=== PATIENT | male | born 1960 | race Two or more races ===

== ENCOUNTER 2018-10-22 02:32 | Inpatient (IN) | payer BC ==
[2018-10-22] MEDS ORDERED: ONDANSETRON 4 MG INJ (03:22)
[2018-10-22 03:56] LABS: ADD MAN DIFF? NO
[2018-10-22 03:58] LABS: WHITE BLOOD COUNT 14.7 10^3/ul (4.8-10.8)
[2018-10-22 03:58] LABS: BASOPHIL # 0.1 10^3/ul (0.0-0.1); BASOPHILS % 0.5 % (0.0-2.0); EOSINOPHILS # 0.4 10^3/ul (0.0-0.5); EOSINOPHILS % 2.7 % (0.0-7.0); HEMATOCRIT 39.9 % (42.0-52.0); HEMOGLOBIN 13.4 g/dl (14.0-18.0); LYMPHOCYTES # 2.7 10^3/ul (0.8-2.9); LYMPHOCYTES % 18.1 % (15.0-51.0); MEAN CORPUSCULAR HEMOGLOBIN 31.5 pg (29.0-33.0); MEAN CORPUSCULAR HGB CONC 33.6 g/dl (32.0-37.0); MEAN CORPUSCULAR VOLUME 93.7 fl (82.0-101.0); MEAN PLATELET VOLUME 9.9 fl (7.4-10.4); MONOCYTE # 1.1 10^3/ul (0.3-0.9); MONOCYTES % 7.4 % (0.0-11.0); NEUTROPHIL # 10.4 10^3/ul (1.6-7.5); NEUTROPHILS % 70.5 % (39.0-77.0); PLATELET COUNT 261 10^3/UL (140-415); RED BLOOD COUNT 4.26 10^6/ul (4.70-6.10); RED CELL DISTRIBUTION WIDTH 13.1 % (11.5-14.5)
[2018-10-22 04:03] LABS: INR 0.92; PARTIAL THROMBOPLASTIN TIME 20.4 Sec (23.0-35.0); PROTIME 12.4 Sec (11.9-14.9)
[2018-10-22 04:04] LABS: ALANINE AMINOTRANSFERASE 35 IU/L (13-69); ALBUMIN 3.6 g/dl (3.3-4.9); ALBUMIN/GLOBULIN RATIO 1.38; ALKALINE PHOSPHATASE 62 IU/L (42-121); ANION GAP 13 (5-13); ASPARTATE AMINO TRANSFERASE 27 IU/L (15-46); BILIRUBIN,INDIRECT 0.5 mg/dl (0-1.1); BILIRUBIN,TOTAL 0.5 mg/dl (0.2-1.3); BLOOD UREA NITROGEN 25 mg/dl (7-20); CALCIUM 8.6 mg/dl (8.4-10.2); CARBON DIOXIDE 25 mmol/L (21-31); CHLORIDE 107 mmol/L (97-110); CREATININE 1.19 mg/dl (0.61-1.24); Estimated GFR > 60 mL/min (>60); GLUCOSE 205 mg/dl (70-220); POTASSIUM 3.9 mmol/L (3.5-5.1); SODIUM 145 mmol/L (135-144); TOTAL PROTEIN 6.2 g/dl (6.1-8.1)
[2018-10-22 04:15] LABS: TROPONIN-I 0.022 ng/ml (0.000-0.120)
[2018-10-22 12:12] LABS: TROPONIN-I < 0.012 ng/ml (0.000-0.120)
[2018-10-22] MEDS: CLOPIDOGREL 75 MG TAB PO (17:17)
[2018-10-22 19:35] LABS: TROPONIN-I < 0.012 ng/ml (0.000-0.120)
[2018-10-22] MEDS: ATORVASTATIN 10 MG TAB PO (20:21)
[2018-10-22] MEDS: BENAZEPRIL 10 MG TAB PO (20:21)
[2018-10-22] MEDS: FAMOTIDINE 20 MG TAB PO (20:22)
[2018-10-23 04:09] LABS: CHOLESTEROL 152 mg/dl (100-200)
[2018-10-23 04:09] LABS: CHOL/HDL RATIO 5.8 RATIO; HDL CHOLESTEROL 26 mg/dl (28-71); LDL CHOLESTEROL,CALCULATED 98 mg/dl; TRIGLYCERIDES 139 mg/dl (0-149)
[2018-10-23 04:31] LABS: TROPONIN-I 0.014 ng/ml (0.000-0.120)
[2018-10-23] MEDS: AMLODIPINE 10 MG TAB PO (08:05)
[2018-10-23] MEDS: FENOFIBRATE 145 MG TAB PO (08:05)
[2018-10-23] MEDS: CLOPIDOGREL 75 MG TAB PO (08:05)
[2018-10-23] MEDS: ASPIRIN 81 MG TAB PO (08:05)
[2018-10-23] MEDS: BENAZEPRIL 10 MG TAB PO ×2 (08:06→21:22)
[2018-10-23] MEDS: LOSARTAN 50 MG TAB PO (08:06)
[2018-10-23] MEDS: FAMOTIDINE 20 MG TAB PO (21:21)
[2018-10-23] MEDS: ATORVASTATIN 10 MG TAB PO (21:21)
[2018-10-24] MEDS: FENOFIBRATE 145 MG TAB PO (08:35)
[2018-10-24] MEDS: ASPIRIN 81 MG TAB PO (08:35)
[2018-10-24] MEDS: BENAZEPRIL 10 MG TAB PO (08:35)
[2018-10-24] MEDS: CLOPIDOGREL 75 MG TAB PO (08:35)
[2018-10-24] MEDS: AMLODIPINE 10 MG TAB PO (08:36)
[2018-10-24] MEDS: LOSARTAN 50 MG TAB PO (08:36)
[2018-10-24 10:16] LABS: ADD MAN DIFF? NO
[2018-10-24 10:21] LABS: BASOPHILS % 0.4 % (0.0-2.0); EOSINOPHILS # 0.2 10^3/ul (0.0-0.5); EOSINOPHILS % 3.4 % (0.0-7.0); HEMATOCRIT 31.5 % (42.0-52.0); HEMOGLOBIN 10.6 g/dl (14.0-18.0); LYMPHOCYTES # 1.6 10^3/ul (0.8-2.9); LYMPHOCYTES % 22.8 % (15.0-51.0); MEAN CORPUSCULAR HEMOGLOBIN 31.5 pg (29.0-33.0); MEAN CORPUSCULAR HGB CONC 33.7 g/dl (32.0-37.0); MEAN CORPUSCULAR VOLUME 93.5 fl (82.0-101.0); MEAN PLATELET VOLUME 9.5 fl (7.4-10.4); MONOCYTE # 0.8 10^3/ul (0.3-0.9); MONOCYTES % 11.5 % (0.0-11.0); NEUTROPHIL # 4.4 10^3/ul (1.6-7.5); NEUTROPHILS % 61.6 % (39.0-77.0); PLATELET COUNT 179 10^3/UL (140-415); RED BLOOD COUNT 3.37 10^6/ul (4.70-6.10); RED CELL DISTRIBUTION WIDTH 13.2 % (11.5-14.5)
[2018-10-24 10:21] LABS: WHITE BLOOD COUNT 7.1 10^3/ul (4.8-10.8)
[2018-10-24 10:46] LABS: ANION GAP 7 (5-13); BLOOD UREA NITROGEN 15 mg/dl (7-20); CALCIUM 8.8 mg/dl (8.4-10.2); CARBON DIOXIDE 31 mmol/L (21-31); CHLORIDE 105 mmol/L (97-110); Estimated GFR > 60 mL/min (>60); GLUCOSE 124 mg/dl (70-220); POTASSIUM 3.4 mmol/L (3.5-5.1); SODIUM 143 mmol/L (135-144)
[2018-10-24] MEDS: POTASSIUM CHLORIDE 20 MEQ POWDER FOR ORAL SOLN PO (14:39)
[2018-10-24] MEDS ORDERED: LOSARTAN 50 MG TAB PO (21:00)
== END 2018-10-24 19:00 | disposition home or self-care (01) | DRG 312 ==
LOC: E/R 02:32 → 6WM 04:58
DX: R55 Syncope and collapse (principal); I25.10 Atherosclerotic heart disease of native coronary artery without angina pectoris; I10 Essential (primary) hypertension; E78.5 Hyperlipidemia, unspecified; Z87.891 Personal history of nicotine dependence; Z79.82 Long term (current) use of aspirin
CPT/HCPCS: 70450; 71045; 74176; 80048; 80053; 80061; 84484; 85025; 85610; 85730; 93005; 93306; 99285-25; G0378

== ENCOUNTER 2018-12-11 18:07 | Observation (INO) | payer BC ==
[2018-12-11 18:31] LABS: ADD MAN DIFF? NO
[2018-12-11] MEDS: ASPIRIN 325 MG TAB PO (18:32)
[2018-12-11] MEDS: NITROGLYCERIN (SL) 0.4 MG TAB SL (18:33)
[2018-12-11 18:38] LABS: BASOPHIL # 0.1 10^3/ul (0.0-0.1); BASOPHILS % 0.7 % (0.0-2.0); EOSINOPHILS # 0.4 10^3/ul (0.0-0.5); EOSINOPHILS % 5.7 % (0.0-7.0); HEMATOCRIT 46.7 % (42.0-52.0); HEMOGLOBIN 15.6 g/dl (14.0-18.0); LYMPHOCYTES # 1.7 10^3/ul (0.8-2.9); LYMPHOCYTES % 22.4 % (15.0-51.0); MEAN CORPUSCULAR HEMOGLOBIN 30.5 pg (29.0-33.0); MEAN CORPUSCULAR HGB CONC 33.4 g/dl (32.0-37.0); MEAN CORPUSCULAR VOLUME 91.2 fl (82.0-101.0); MEAN PLATELET VOLUME 9.9 fl (7.4-10.4); MONOCYTE # 0.8 10^3/ul (0.3-0.9); MONOCYTES % 10.3 % (0.0-11.0); NEUTROPHIL # 4.5 10^3/ul (1.6-7.5); NEUTROPHILS % 60.6 % (39.0-77.0); PLATELET COUNT 196 10^3/UL (140-415); RED BLOOD COUNT 5.12 10^6/ul (4.70-6.10); RED CELL DISTRIBUTION WIDTH 12.7 % (11.5-14.5)
[2018-12-11 18:38] LABS: WHITE BLOOD COUNT 7.5 10^3/ul (4.8-10.8)
[2018-12-11 18:50] LABS: INR 0.86; PROTIME 11.8 Sec (11.9-14.9); PT RATIO 0.9
[2018-12-11 18:51] LABS: PARTIAL THROMBOPLASTIN TIME 25.1 Sec (23.0-35.0)
[2018-12-11 19:08] LABS: ANION GAP 10 (5-13); BLOOD UREA NITROGEN 17 mg/dl (7-20); CALCIUM 9.8 mg/dl (8.4-10.2); CARBON DIOXIDE 30 mmol/L (21-31); CHLORIDE 99 mmol/L (97-110); CREATININE 1.13 mg/dl (0.61-1.24); Estimated GFR > 60 mL/min (>60); GLUCOSE 111 mg/dl (70-220); POTASSIUM 3.5 mmol/L (3.5-5.1); SODIUM 139 mmol/L (135-144)
[2018-12-11] MEDS: ACETAMINOPHEN 325 MG TAB PO (19:09)
[2018-12-11 19:19] LABS: B-TYPE NATRIURETIC PEPTIDE 358 PG/ML (0-125); TROPONIN-I 0.018 ng/ml (0.000-0.120)
[2018-12-11] MEDS ORDERED: ACETAMINOPHEN 325 MG TAB PO (20:30)
[2018-12-12 01:23] LABS: CREATINE KINASE 35 IU/L (23-200)
[2018-12-12 01:34] LABS: CK-MB 1.05 ng/ml (0.0-2.4); TROPONIN-I 0.025 ng/ml (0.000-0.120)
[2018-12-12] MEDS ORDERED: NITROGLYCERIN (SL) 0.4 MG TAB SL (02:00)
[2018-12-12] MEDS: hydrALAzine 20 MG INJ IV (02:05)
[2018-12-12] MEDS: ONDANSETRON 4 MG INJ IV (03:57)
[2018-12-12 07:20] LABS: CREATINE KINASE 32 IU/L (23-200)
[2018-12-12 07:21] LABS: CK INDEX 2.7; CK-MB 0.87 ng/ml (0.0-2.4); TROPONIN-I 0.082 ng/ml (0.000-0.120)
[2018-12-12 07:24] LABS: CHOLESTEROL 248 mg/dl (100-200)
[2018-12-12 07:24] LABS: CHOL/HDL RATIO 6.5 RATIO; HDL CHOLESTEROL 38 mg/dl (28-71); LDL CHOLESTEROL,CALCULATED 163 mg/dl; TRIGLYCERIDES 233 mg/dl (0-149)
[2018-12-12] MEDS: ASPIRIN 325 MG TAB PO (08:52)
[2018-12-12] MEDS: ACETAMINOPHEN 325 MG TAB PO ×2 (08:57→15:53)
[2018-12-12] MEDS: ENOXAPARIN 30 MG/0.3 ML SYG SC (08:58)
[2018-12-12 12:50] LABS: TROPONIN-I 0.051 ng/ml (0.000-0.120)
[2018-12-12] MEDS: ATORVASTATIN 10 MG TAB PO (20:23)
[2018-12-12] MEDS: AMLODIPINE 5 MG TAB PO (20:24)
[2018-12-13] MEDS: PANTOPRAZOLE (EC) 40 MG TAB PO (05:46)
[2018-12-13] MEDS: AMLODIPINE 5 MG TAB PO (08:29)
[2018-12-13] MEDS: LOSARTAN 50 MG TAB PO (08:29)
[2018-12-13] MEDS: ASPIRIN 325 MG TAB PO (08:29)
[2018-12-13] MEDS: CLOPIDOGREL 75 MG TAB PO (08:29)
[2018-12-13] MEDS: ENOXAPARIN 30 MG/0.3 ML SYG SC (08:35)
== END 2018-12-13 17:25 | disposition home or self-care (01) ==
LOC: 6WM 20:24 → E/R 18:07
DX: R07.9 Chest pain, unspecified (principal); I16.0 Hypertensive urgency; E78.5 Hyperlipidemia, unspecified; I42.9 Cardiomyopathy, unspecified
CPT/HCPCS: 36415; 71045; 80048; 80061; 82550; 82553; 83880; 84484; 85025; 85610; 85730; 93005; 99285-25; G0378